=== PATIENT | male | born 1980 | race African-American/Black ===

== ENCOUNTER 2024-01-07 04:10 | Inpatient (IN) | payer OTHER ==
[2023-12-30 16:24] VITALS: BMI 33.0
[2024-01-07] MEDS ORDERED: GENTAMICIN SO4 80 MG/2 ML VIAL ONE (07:02)
[2024-01-07] MEDS ORDERED: THROMBIN (BOVINE) 5,000 UNIT VIAL TP ONE (07:02)
[2024-01-07] MEDS ORDERED: LIDOCAINE 1%/EPI 1:100000 (20 ML MULTI DOSE VIAL) ONE (07:03)
[2024-01-07] MEDS ORDERED: BUPIVACAINE HCL/PF 0.5% (5MG/ML) 10 ML VIAL ONE (07:03)
[2024-01-07] MEDS ORDERED: BUPIVACAINE LIPOSOME/PF (EXPAREL) 266 MG/20 ML VIAL ONE (07:03)
[2024-01-07] MEDS ORDERED: PROPOFOL 20 ML ONE (07:17)
[2024-01-07] MEDS ORDERED: ROCURONIUM BROMIDE 50 MG/5 ML SYRINGE ONE ×2 (07:17→08:45)
[2024-01-07] MEDS ORDERED: MIDAZOLAM HCL 2 MG/2 ML SINGLE DOSE VIAL ONE (07:19)
[2024-01-07] MEDS: ceFAZolin SODIUM 1 GM VIAL IVPB ONE ×2 (07:20→08:22)
[2024-01-07] MEDS: VANCOMYCIN 1 GM in NS (PRE-DOCKED) 1,000 MG/250 ML (RESTRICTED TO ID ONLY) IVPB ONE ×2 (07:20→08:22)
[2024-01-07] MEDS: LIDOCAINE 1%/EPI 1:100000 (20 ML MULTI DOSE VIAL) IJ ONE ×2 (07:21→08:27)
[2024-01-07] MEDS ORDERED: DEXMEDETOMIDINE HCL 200 MCG/2 ML IVPB ONE (07:44)
[2024-01-07] MEDS ORDERED: HYDROmorphone HCl 2 MG/ML VIAL ONE (08:32)
[2024-01-07] MEDS ORDERED: NEOSTIGMINE METHYLSULFATE 0.5 MG/1 ML - 10 ML MDV ONE (09:21)
[2024-01-07] MEDS: THROMBIN (BOVINE) 5,000 UNIT VIAL TP ONE (09:37)
[2024-01-07] MEDS: GENTAMICIN SO4 80 MG/2 ML VIAL IVPB ONE ×2 (09:37→09:50)
[2024-01-07] MEDS: HYDROGEN PEROXIDE 473 ML PO ONE (09:50)
[2024-01-07] MEDS: ALBUTEROL SO4 2.5/IPRATROPIUM 0.5 INH SOL 3 ML VIAL.NEB. NEB PRN (10:20)
[2024-01-07] MEDS ORDERED: NALOXONE HCL 0.4 MG/ML VIAL ONE (10:20)
[2024-01-07] MEDS ORDERED: diphenhydrAMINE HCL 25 MG CAPSULE (FP) PO PRN ×2 (10:28→11:54)
[2024-01-07] MEDS ORDERED: oxyCODONE HCL 5 MG TABLET PO PRN ×3 (10:28→11:54)
[2024-01-07] MEDS: ONDANSETRON 4 MG/2 ML VIAL IVPUSH PRN (10:40)
[2024-01-07] MEDS ORDERED: HYDROmorphone HCl 2 MG/ML VIAL IVPB PRN ×2 (10:55→11:54)
[2024-01-07] MEDS ORDERED: CYCLOBENZAPRINE HCL 5 MG TABLET PO PRN ×2 (10:56→11:54)
[2024-01-07] MEDS ORDERED: ONDANSETRON 4 MG/2 ML VIAL IVPUSH PRN (11:54)
[2024-01-07] MEDS ORDERED: ALBUTEROL SO4 2.5/IPRATROPIUM 0.5 INH SOL 3 ML VIAL.NEB. NEB PRN (11:54)
[2024-01-07] MEDS ORDERED: ACETAMINOPHEN INJECTION 100 ML IVPB ONE (12:13)
[2024-01-07] MEDS: ACETAMINOPHEN 1000 MG/100 ML BAG IVPB ONE ×2 (12:14→13:04)
[2024-01-07] MEDS: LACTATED RINGERS SOLUTION 1,000 ML IV SCH ×2 (13:04→14:07)
[2024-01-07] MEDS: LACTATED RINGERS SOLUTION 1,000 ML/1,000 ML INFUS.BAG IV SCH (13:04)
[2024-01-07] MEDS ORDERED: HEPARIN NA (PORCINE) 5,000 UNITS/ML 1ML VIAL SQ SCH ×2 (14:00→22:00)
[2024-01-07] MEDS ORDERED: DOCUSATE SODIUM 100 MG CAPSULE (FP) PO SCH (14:00)
[2024-01-07] MEDS: DOCUSATE SODIUM 100 MG CAPSULE (FP) PO SCH (14:12)
[2024-01-07] MEDS: ACETAMINOPHEN 500 MG TABLET (FP) PO SCH (17:46)
[2024-01-07] MEDS: CEFAZOLIN 1 GM in DEXTROSE 5%-WATER - 50 ML IVPB SCH (17:48)
[2024-01-07] MEDS ORDERED: ACETAMINOPHEN 500 MG TABLET (FP) PO SCH (18:00)
[2024-01-07] MEDS ORDERED: CEFAZOLIN 1 GM in DEXTROSE 5%-WATER - 50 ML IVPB SCH (18:00)
[2024-01-07] MEDS: HEPARIN NA (PORCINE) 5,000 UNITS/ML 1ML VIAL SQ SCH (21:32)
[2024-01-08 03:30] VITALS: RESP 20
[2024-01-08] MEDS ORDERED: HYDROmorphone HCL CARPU-JECT 2 MG/1 ML DISP.SYRIN IVPB PRN (03:54)
[2024-01-08 07:21] LABS: HEMATOCRIT 39.5 % (35.4-49); HEMOGLOBIN 13.3 GM/dL (11.7-16.9); MCH 30.1 pg (25.7-33.7); MCHC 33.7 g/dl (32.0-35.9); MEAN CELL VOLUME 89.4 fl (80-96); MEAN PLT VOLUME 7.3 fl (7.5-11.1); PLATELET COUNT 266 10^3/uL (134-434); RBC 4.42 M/mm3 (4.00-5.60); RDW 13.6 % (11.9-15.9); WHITE BLOOD COUNT 15.6 K/mm3 (4.0-10.0)
[2024-01-08 07:34] LABS: POTASSIUM 4.2 mmol/L (3.5-5.1)
[2024-01-08 07:37] LABS: CALCIUM 8.8 mg/dL (8.5-10.1)
[2024-01-08 07:39] LABS: BLOOD UREA NITROGEN 8.7 mg/dL (7-18)
[2024-01-08 07:41] LABS: CREATININE 0.9 mg/dL (0.55-1.3)
[2024-01-08] MEDS ORDERED: FOLIC ACID 1 MG TABLET (FP) PO SCH (10:00)
[2024-01-08] MEDS ORDERED: FERROUS SO4 325 MG TABLET (FP) PO SCH (10:00)
[2024-01-08] MEDS: FERROUS SO4 325 MG TABLET (FP) PO SCH (10:02)
[2024-01-08] MEDS: FOLIC ACID 1 MG TABLET (FP) PO SCH (10:03)
[2024-01-08] MEDS: oxyCODONE HCL 5 MG TABLET PO PRN (10:03)
[2024-01-08 12:29] VITALS: BP 141/92; TEMP 98.1
[2024-01-08 13:54] VITALS: PULSE 73
== END 2024-01-08 14:49 | disposition home or self-care (01) | DRG 321 ==
LOC: J2C 04:10 → J4W 16:42
PROVIDERS: ADMIT Internal Medicine; ATTEND Internal Medicine
PROC: 00NW0ZZ Release Cervical Spinal Cord, Open Approach (ICD-10-PCS; 2024-01-07)
PROC: 4A11X4G Monitoring of Peripheral Nervous Electrical Activity, Intraoperative, External Approach (ICD-10-PCS; 2024-01-07)
PROC: 0RB30ZZ Excision of Cervical Vertebral Disc, Open Approach (ICD-10-PCS; 2024-01-07)
PROC: 0RG20A0 Fusion of 2 or more Cervical Vertebral Joints with Interbody Fusion Device, Anterior Approach, Anterior Column, Open Approach (ICD-10-PCS; principal; 2024-01-07 08:00)
DX: M47.12 Other spondylosis with myelopathy, cervical region (principal); G47.33 Obstructive sleep apnea (adult) (pediatric); M40.292 Other kyphosis, cervical region; R09.02 Hypoxemia
CPT/HCPCS: 36415; 72125-TC; 76000-TC-FY; 80048; 85027; 86850; 86900; 86901; 94640; 94660; 94760; 97116-GP; 97162-GP; C1713; J0131; J1644

== ENCOUNTER 2024-01-10 06:47 | Emergency (ER) | payer OTHER ==
[2024-01-10 06:54] VITALS: BP 131/91; PULSE 77; RESP 18; BMI 34.9
== END 2024-01-10 08:17 | disposition home or self-care (01) ==
LOC: JER 06:47
DX: R13.10 Dysphagia, unspecified (principal)
CPT/HCPCS: 99283-25

== ENCOUNTER 2025-04-18 06:08 | Inpatient (IN) | payer OTHER ==
[2025-04-14 17:24] VITALS: BMI 34.2
[2025-04-18] MEDS ORDERED: BUPIVACAINE HCL/PF 0.5% (5MG/ML) 10 ML VIAL ONE (07:08)
[2025-04-18] MEDS ORDERED: THROMBIN (BOVINE) 20,000 UNIT VIAL TP ONE (07:08)
[2025-04-18] MEDS ORDERED: GENTAMICIN SO4 80 MG/2 ML VIAL ONE (07:08)
[2025-04-18] MEDS ORDERED: VANCOMYCIN 1,000 MG VIAL (RESTRICTED TO ID ONLY) ONE ×2 (07:08→07:41)
[2025-04-18] MEDS ORDERED: BUPIVACAINE LIPOSOME/PF (EXPAREL) 266 MG/20 ML VIAL ONE (07:09)
[2025-04-18] MEDS ORDERED: LIDOCAINE 1%/EPI 1:100000 (20 ML MULTI DOSE VIAL) ONE (07:09)
[2025-04-18] MEDS ORDERED: ACETAMINOPHEN INJECTION 100 ML ONE (07:18)
[2025-04-18] MEDS ORDERED: DEXMEDETOMIDINE HCL 200 MCG/2 ML IVPB ONE (07:18)
[2025-04-18] MEDS ORDERED: SUCCINYLCHOLINE CHLORIDE 200 MG/10 ML SYRINGE ONE (07:30)
[2025-04-18] MEDS ORDERED: PROPOFOL 60 ML ONE (07:36)
[2025-04-18] MEDS ORDERED: PROPOFOL 20 ML ONE ×2 (07:39→10:19)
[2025-04-18] MEDS ORDERED: MAGNESIUM SULF 50% (8.12 MEQ/2 ML-1 GM VIAL) ONE (07:39)
[2025-04-18] MEDS ORDERED: DEXAMETHASONE SOD PHOSPHATE 4 MG/1 ML VIAL ONE ×2 (07:40→09:20)
[2025-04-18] MEDS ORDERED: ONDANSETRON 4 MG/2 ML VIAL ONE (07:40)
[2025-04-18] MEDS ORDERED: LIDOCAINE HCL/PF 2% SDV 5ML VIAL ONE (07:40)
[2025-04-18] MEDS ORDERED: MIDAZOLAM HCL 2 MG/2 ML SINGLE DOSE VIAL ONE (07:41)
[2025-04-18] MEDS ORDERED: TRANEXAMIC ACID 1000 MG/10 ML VIAL ONE (07:41)
[2025-04-18] MEDS ORDERED: GLYCOPYRROLATE 0.2 MG/1 ML VIAL ONE (07:42)
[2025-04-18] MEDS ORDERED: ALBUTEROL SO4 HFA INHALER IH ONE (08:43)
[2025-04-18] MEDS ORDERED: ROCURONIUM BROMIDE 50 MG/5 ML SYRINGE ONE ×2 (08:44→09:41)
[2025-04-18] MEDS ORDERED: KETAMINE HCL 200 MG/20 ML VIAL ONE (08:46)
[2025-04-18] MEDS: ceFAZolin 2 GRAM PREMIX BAG IVPB ONE ×2 (09:10)
[2025-04-18] MEDS: LIDOCAINE 1%/EPI 1:100000 (20 ML MULTI DOSE VIAL) IJ ONE ×2 (09:15)
[2025-04-18] MEDS: VANCOMYCIN 1,000 MG VIAL (RESTRICTED TO ID ONLY) IVPB ONE (09:20)
[2025-04-18] MEDS ORDERED: PHENYLEPHRINE HCL 10 MG/1 ML SINGLE DOSE VIAL ONE (09:33)
[2025-04-18] MEDS ORDERED: LACTATED RINGERS SOLUTION 1,000 ML IV SCH (09:45)
[2025-04-18] MEDS: GENTAMICIN SO4 80 MG/2 ML VIAL IVPB ONE (10:11)
[2025-04-18] MEDS: THROMBIN (BOVINE) 20,000 UNIT VIAL TP ONE ×2 (10:12→10:24)
[2025-04-18] MEDS: HYDROGEN PEROXIDE 473 ML PO ONE ×2 (10:13→10:41)
[2025-04-18] MEDS: BUPIVACAINE HCL/PF 0.5% (5MG/ML) 10 ML VIAL IJ ONE ×2 (10:41→10:58)
[2025-04-18] MEDS: BUPIVACAINE LIPOSOME/PF (EXPAREL) 266 MG/20 ML VIAL NR ONE ×2 (10:42→10:58)
[2025-04-18] MEDS ORDERED: PROPOFOL 40 ML ONE (10:44)
[2025-04-18] MEDS ORDERED: ONDANSETRON 4 MG/2 ML VIAL IVPUSH PRN (11:05)
[2025-04-18] MEDS ORDERED: SUGAMMADEX SODIUM 200 MG/2 ML VIAL ONE (11:11)
[2025-04-18] MEDS: LACTATED RINGERS SOLUTION 1,000 ML/1,000 ML INFUS.BAG IV SCH (12:00)
[2025-04-18] MEDS: HEPARIN NA (PORCINE) 5,000 UNITS/ML 1ML VIAL SQ SCH (14:00)
[2025-04-18] MEDS: DOCUSATE SODIUM 100 MG CAPSULE (FP) PO SCH (14:00)
[2025-04-18] MEDS: CEFAZOLIN 1 GM in DEXTROSE 5%-WATER - 50 ML IVPB SCH (17:57)
[2025-04-19] MEDS: diphenhydrAMINE HCL 25 MG CAPSULE (FP) PO PRN (02:20)
[2025-04-19 07:56] LABS: MCHC 33.5 g/dl (32.3-36.5); MEAN CELL VOLUME 89.3 fl (79.0-92.2); MEAN PLT VOLUME 9.1 fl (9.4-12.4); RDW 13.4 % (12.1-15.9)
[2025-04-19 08:31] LABS: GLUCOSE,RANDOM 105.0 mg/dL (74-106)
[2025-04-19 08:33] LABS: CO2 28.0 mmol/L (21-32)
[2025-04-19 08:36] LABS: CREATININE 0.97 mg/dL (0.55-1.3)
[2025-04-19] MEDS: FERROUS SO4 325 MG TABLET (FP) PO SCH (09:24)
[2025-04-19] MEDS: FOLIC ACID 1 MG TABLET (FP) PO SCH (09:24)
[2025-04-19] MEDS: CELECOXIB 100 MG CAPSULE PO SCH (10:58)
[2025-04-19] MEDS: PANTOPRAZOLE 40 MG TABLET PO SCH (10:58)
[2025-04-19] MEDS: GABAPENTIN 100 MG CAPSULE PO SCH (14:14)
[2025-04-19] MEDS: ACETAMINOPHEN 1000 MG/100 ML BAG IVPB PRN (21:06)
[2025-04-19] MEDS: POLYETHYLENE GLYCOL (HEALTHYLAX) 3350 17 GM PACKET PO SCH (21:07)
[2025-04-19] MEDS: MIRTAZAPINE 15 MG TABLET (FP) PO SCH (21:07)
[2025-04-20] MEDS: SENNOSIDES 8.6MG TABLET (FP) PO SCH (21:28)
[2025-04-21 08:40] LABS: MCHC 32.7 g/dl (32.3-36.5); MEAN CELL VOLUME 91.4 fl (79.0-92.2); MEAN PLT VOLUME 9.5 fl (9.4-12.4); RDW 13.5 % (12.1-15.9)
[2025-04-21 09:00] LABS: GLUCOSE,RANDOM 98.0 mg/dL (74-106)
[2025-04-21 09:01] LABS: TOT PROT 7.0 g/dl (6.4-8.2)
[2025-04-21 09:02] LABS: CO2 29.0 mmol/L (21-32)
[2025-04-21 09:03] LABS: ALK PHOS 51.0 U/L (40-150)
[2025-04-21 09:06] LABS: CREATININE 0.95 mg/dL (0.55-1.3); SGOT/AST 30.0 U/L (5-34); SGPT/ALT 23.0 U/L (0-55)
[2025-04-23 07:36] VITALS: BP 148/96; RESP 19; TEMP 97.5
[2025-04-23 07:59] VITALS: PULSE 68
== END 2025-04-23 12:58 | disposition home or self-care (01) | DRG 304 ==
LOC: J2C 06:08 → J6W TELE 14:42
PROVIDERS: ADMIT Neurological Surgery; ATTEND Family Medicine
PROC: 0SG00AJ Fusion of Lumbar Vertebral Joint with Interbody Fusion Device, Posterior Approach, Anterior Column, Open Approach (ICD-10-PCS; 2025-04-18)
PROC: 0SB20ZZ Excision of Lumbar Vertebral Disc, Open Approach (ICD-10-PCS; 2025-04-18)
PROC: 4A11X4G Monitoring of Peripheral Nervous Electrical Activity, Intraoperative, External Approach (ICD-10-PCS; 2025-04-18)
PROC: 0SG0071 Fusion of Lumbar Vertebral Joint with Autologous Tissue Substitute, Posterior Approach, Posterior Column, Open Approach (ICD-10-PCS; principal; 2025-04-18 08:00)
DX: M47.816 Spondylosis without myelopathy or radiculopathy, lumbar region (principal); F41.9 Anxiety disorder, unspecified; M54.50 Low back pain, unspecified; F17.210 Nicotine dependence, cigarettes, uncomplicated
CPT/HCPCS: 36415; 72131-TC; 76000-TC-FY; 80048; 80053; 85027; 86850; 86900; 86901; 93971-TC-RT; 94010; 94660; 94760; 97116-GP; 97162-GP; C1713; C1889; J0666